=== PATIENT | female | born 1990 | race Two or more races ===

== ENCOUNTER 2023-02-12 20:55 | Emergency (ER) | payer MEDICAID, SELFPAY ==
[2023-02-12 21:28] VITALS: BP 116/81; PULSE 74; RESP 16; TEMP 37.1; O2SAT 98; BMI 23.0
[2023-02-12] MEDS: Ibuprofen 600 MG TABLET PO (23:33)
[2023-02-12] MEDS: Cyclobenzaprine HCl 5 MG TABLET PO (23:33)
--- NOTE | 2023-02-12 23:35 | PC.NURSE ---
Took care from RN Sammy, pt a&o, no sob or chest pain, medicated per mar, pt denies any light headedness or double vision, neuro intact, able to answer question appropriately. Will continue to monitor.
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
== END 2023-02-13 00:01 | disposition home or self-care (01) ==
PROVIDERS: Emergency Provider Emergency Medicine Emergency Medical Services
DX: S13.4XXA Sprain of ligaments of cervical spine, initial encounter (principal); V43.52XA Car driver injured in collision with other type car in traffic accident, initial encounter; Y93.9 Activity, unspecified; Y92.410 Unspecified street and highway as the place of occurrence of the external cause; Y99.9 Unspecified external cause status
CPT/HCPCS: 99283